=== PATIENT | male | born 1955 | race Caucasian/White ===

== ENCOUNTER 2016-11-29 12:14 | Inpatient (IN) | payer MEDICAID, OTHER ==
[~2016-11-29] VITALS: Ht 177.8 cm; Wt 100.2 kg
[~2016-11-29 12:14] MED LIST: ATOR80TA PO; CHOL100053 PO; CLOP75TA2 PO; DONE5TAB34 PO; DULO60CA63 PO; ESZO2TAB PO; METF500T4 PO; PANT40TA4 PO; TAMS-12 PO; ZOLP5TAB7 PO; [UNRECOGNIZED DRUG - CODE] PO
--- NOTE | 2016-11-29 12:20 | NUR ---
BIB FROM HOME DUE TO NEAR SYNCOPAL EPISODE. PATIENT IS AAO4, APPEARS IN NO APPARENT DISTRESS, RESPIRATION EVEN AND UNLABORED,. PATIENT DENIES N/V. HOWEVER PATIENT REPORTED HAVING BLOOD IN THE STOOL X1. PATIENT'S SKIN IS WARM TO TOUCH AND NON DIAPHORETIC. AFEBRILE. VSS. GOWNED PT AND PLACED ON TELE MONITOR.
[2016-11-29] MEDS ORDERED: PANTOPRAZOLE 40 MG VIAL ONE (12:27)
[2016-11-29] MEDS ORDERED: PANTOPRAZOLE 40 MG VIAL IV ONE (12:30)
--- NOTE | 2016-11-29 12:30 | NUR ---
MD MONTEZ AT BS
[2016-11-29 12:34] LABS: BASOPHILS # (AUTO) 0.1 /CMM (0.0-0.2); BASOPHILS % (AUTO) 0.6 % (0.0-2.0); EOSINOPHILS % (AUTO) 0.1 % (0.0-6.0); HEMATOCRIT 26 % (39-51); HEMOGLOBIN 8.6 g/dL (13.5-17.5); LYMPHOCYTES # (AUTO) 2.5 /CMM (0.8-4.8); LYMPHOCYTES % (AUTO) 14.3 % (20.0-44.0); MEAN CORPUSCULAR HEMOGLOBIN 25 PG (26.0-33.0); MEAN CORPUSCULAR HGB CONC 33 g/dl (31.0-36.0); MEAN CORPUSCULAR VOLUME 77 fL (80-96); MONOCYTES # (AUTO) 0.8 /CMM (0.1-1.30); MONOCYTES % (AUTO) 4.5 % (2.0-12.0); NEUTROPHILS # (AUTO) 14.1 /CMM (1.8-8.9); NEUTROPHILS % (AUTO) 80.5 % (43.0-81.0); PLATELET COUNT (AUTO) 394 /CMM (150-450); RDW COEFFICIENT OF VARIATION 16.9 (11.5-15.0); RED BLOOD CELL COUNT(AUTO) 3.45 MIL/uL (4.5-6.0); WHITE BLOOD COUNT (AUTO) 17.5 K/uL (4.3-11.0)
--- NOTE | 2016-11-29 12:42 | NUR ---
CALLED NURSING SUP. FOR TELE BED
--- NOTE | 2016-11-29 12:44 | NUR ---
IV ACCESSED TO [facility] 20,BLOOD SAMPLE SENT TO LAB
[2016-11-29 12:49] LABS: INR 1.05 (0.87-1.13); PROTHROMBIN TIME 10.9 SECS (9.5-12.7)
--- NOTE | 2016-11-29 12:52 | NUR ---
CALLED DR.ANITA DOAN AT [phone], TRANSFERRED CALL TO
[2016-11-29 12:54] LABS: CALCIUM, SERUM 8.2 mg/dL (8.5-10.1); POTASSIUM 4.5 mmol/L (3.5-5.1)
--- NOTE | 2016-11-29 12:59 | NUR ---
CALLED (GI BENCH LATHE OPERATOR), TRANSFERRED CALL TO
[2016-11-29 13:00] LABS: ALBUMIN 3.2 g/dL (3.4-5.0); BILIRUBIN,TOTAL 0.5 mg/dL (0.2-1.0); TOTAL PROTEIN, SERUM 6.2 g/dL (6.4-8.2)
[2016-11-29] MEDS ORDERED: IV NS 0.9% 1,000 ML BAG IV ONE (13:00)
[2016-11-29] MEDS ORDERED: METOCLOPRAMIDE HCL 10 MG/2 ML VIAL IV ONE (13:00)
[2016-11-29] MEDS ORDERED: NYST30PO9 TP (13:39)
[2016-11-29] MEDS ORDERED: CLOP75TA2 PO (13:39)
[2016-11-29] MEDS ORDERED: HYDR-548 PO (13:39)
[2016-11-29] MEDS ORDERED: BUSP5TAB3 PO (13:39)
[2016-11-29] MEDS ORDERED: CALC-866 PO (13:39)
[2016-11-29] MEDS ORDERED: [UNRECOGNIZED DRUG - CODE] TP (13:39)
[2016-11-29] MEDS ORDERED: HYDR59LO5 TP (13:39)
[2016-11-29] MEDS ORDERED: TRIA15OI9 TP (13:39)
[2016-11-29] MEDS ORDERED: LIDO30AD10 TP (13:39)
[2016-11-29] MEDS ORDERED: MUPI22OI7 TP (13:39)
[2016-11-29] MEDS ORDERED: TAMS-12 PO (13:39)
[2016-11-29] MEDS ORDERED: DOXE10OR2 PO (13:39)
[2016-11-29] MEDS ORDERED: DONE5TAB34 PO (13:39)
[2016-11-29] MEDS ORDERED: PANT40TA4 PO (13:39)
[2016-11-29] MEDS ORDERED: BUSP10TA3 PO (13:39)
[2016-11-29] MEDS ORDERED: DULO60CA45 PO (13:39)
[2016-11-29] MEDS ORDERED: KETO15CR TP (13:39)
[2016-11-29] MEDS ORDERED: TOBR5DRO46 EACHEYE (13:39)
[2016-11-29] MEDS ORDERED: OLOP2.5D5 DT (13:39)
[2016-11-29] MEDS ORDERED: CHOL100044 PO (13:39)
[2016-11-29] MEDS ORDERED: METF500T4 PO (13:40)
--- NOTE | 2016-11-29 13:57 | NUR ---
MATT PAGED, MANAGER GROUP
--- NOTE | 2016-11-29 14:11 | NUR ---
REPORT GIVEN TO OMAR NURSE FOR CONTINUITY OF CARE.
--- NOTE | 2016-11-29 14:19 | NUR ---
[facility] REPAGED
[2016-11-29] MEDS ORDERED: METOCLOPRAMIDE HCL 10 MG/2 ML VIAL ONE (14:49)
[2016-11-29] MEDS ORDERED: IV SET PRIMARY PUMP SET 1 EA INFUS.SET MC ONE ×2 (14:50→21:20)
[2016-11-29] MEDS ORDERED: IV NS 0.9% 1,000 ML ONE (14:50)
[2016-11-29] MEDS ORDERED: IV NS 0.9% 50 ML IV ONE (14:50)
[2016-11-29] MEDS ORDERED: Z GUARD REMEDY 2 OZ OINT TP PRN (15:00)
[2016-11-29] MEDS ORDERED: ONDANSETRON HCL/PF 4 MG/2 ML VIAL IVP PRN (15:00)
[2016-11-29] MEDS ORDERED: LIDOCAINE 5% (PATCH) 1 EA PATCH TP PRN (15:00)
[2016-11-29] MEDS ORDERED: NYSTATIN TOP POWDER 15 GM BOTTLE TP PRN (15:00)
[2016-11-29] MEDS ORDERED: KETOCONAZOLE 2% CREAM 15 GM TUBE TP PRN (15:00)
[2016-11-29] MEDS ORDERED: ACETAMINOPHEN 325 MG TABLET PO PRN (15:00)
[2016-11-29] MEDS ORDERED: MAGNESIUM HYDROXIDE 30 ML UDC PO PRN (15:00)
[2016-11-29] MEDS ORDERED: ZOLPIDEM TARTRATE 5 MG TABLET PO PRN (15:00)
--- NOTE | 2016-11-29 15:22 | NUR ---
PATIENT TRASNPORTED TO 3W. VSS
--- NOTE | 2016-11-29 15:23 | NUR ---
SETTER JUICE PACKAGING MACHINESCHUMMER NOTE PATIENT IS ALERT AND ORIENTED x4. NO PAIN AT THIS TIME. NO SOB OR DISTRESS NOTED. CALL LIGHT WITHIN REACH. SAFETY MEASURES IMPLEMENTED. SKIN ISSUES PRESENT AND DOCUMENTED. IV INTACT AND PATENT NO REDNESS OR SWELLING NOTED. ABLE TO COMMUNICATE NEEDS. CAME IN FROM ER FOR GI BLEED, POSSIBLE EGD DONE TODAY, CONSENTS OBTAINED AND SIGNED. ALL BELONGINGS ACCOUNTED FOR. WILL CONTINUE TO MONITOR
[2016-11-29 15:30] VITALS: BP 113/65
[2016-11-29] MEDS ORDERED: DEXTROSE 50%-WATER 50 ML DISP.SYRIN IV PRN (16:30)
[2016-11-29] MEDS ORDERED: INSULIN REGULAR, HUMAN 100 UNIT/ML 3 ML VIAL SQ PRN (16:30)
--- NOTE | 2016-11-29 16:44 | NUR ---
STONE GRADER NOTE PATIENT WENT DOWN TO OR. PATIENT IS STABLE, VITALS ARE STABLE. NO PAIN AT THIS TIME. NO SOB OR DISTRESS NOTED. WILL CONTINUE TO MONITOR
[2016-11-29] MEDS: busPIRone 5 MG TABLET PO SCH ×2 (17:00→21:34)
[2016-11-29] MEDS: MUPIROCIN OINT 2% 22 GM TUBE TP SCH (17:00)
[2016-11-29] MEDS: DONEPEZIL 5 MG TABLET PO SCH (17:25)
[2016-11-29] MEDS: BLOOD SUGAR DIAGNOSTIC 1 EACH STRIP IN SCH ×2 (17:26→21:34)
[2016-11-29] MEDS: TAMSULOSIN 0.4 MG CAP.SR.24H PO SCH (18:00)
[2016-11-29] MEDS: CHOLECALCIFEROL 1,000 UNIT TABLET (VIT D3) PO SCH (18:00)
[2016-11-29] MEDS ORDERED: DOXEPIN 10 MG/ML PO SCH (18:00)
[2016-11-29] MEDS: METFORMIN 500 MG TABLET PO SCH ×2 (18:00→21:32)
[2016-11-29] MEDS: DULOXETINE HCL 30 MG CAPSULE.DR PO SCH (18:00)
--- NOTE | 2016-11-29 18:15 | NUR ---
MUSEUM EXHIBIT DESIGNER NOTE PATIENT IS ALERT AND ORIENTED X4. BACK FROM OR, TOLERATED EGD WELL. PATIENT CAN START CLEAR LIQUIDS AND IF TOLERATED ADVANCE. CBC IN AM AND CONTINUE PLAVIX IN 24 HOURS. PATIENT'S VITALS ARE STABLE. WILL CONTINUE TO MONITOR
[2016-11-29] MEDS: HYDROCODONE/APAP 10/325MG 1 EA TABLET PO PRN (18:23)
--- NOTE | 2016-11-29 18:33 | NUR ---
VP DESIGN CLOSING NOTE PATIENT IS ALERT AND ORIENTED x4. PATIENT STATES 8/10 PAIN ON SHOULDER, PAIN MEDICATION GIVEN. NO SOB OR DISTRESS AT THIS TIME. CALL LIGHT WITHIN REACH. SAFETY MEASURES IMPLEMENTED. IV INTACT AND PATENT. ABLE TO COMMUNICATE NEEDS. POSSIBLE DISCHARGE IN THE MORNING IF PATIENT TOLERATES EGD POST OP WELL. CLEAR LIQUID DIET. WILL ENDORSE TO MANIPULATIVE THERAPY SPECIALIST NURSE
--- NOTE | 2016-11-29 19:30 | NUR ---
SHOT PACKER OPENING NOTES: PATIENT IN BED, AOX4, ON ROOM AIR, BREATHING EVEN AND UNLABORED. BREATH SOUNDS CLEAR TO AUSCULTATION. ON TELE MONITORING: SINUS RHYTHM AT RATE OF 80S. PIV OVER RAC G20 INTACT AND PATENT TO FLUSH. PROVIDED FOR COMFORT AND SAFETY. WILL CONT TO MONITOR.
[2016-11-29] MEDS ORDERED: EPINEPHRINE (1:10,000) SYRINGE 1 MG/10 ML DISP.SYRIN ONE (19:54)
[2016-11-29 20:00] VITALS: BP 121/63
--- NOTE | 2016-11-29 21:30 | NUR ---
RN NOTES: PATIENT'S BLOOD SUGAR CHECKED AT 195 MG/DL, PATIENT HAS NO INSULIN COVERAGE ORDERED. PATIENT IS REQUESTING FOR HIS METFORMIN TO BE GIVEN TO HIM. CHECKED EMAR SCHEDULE SUPPOSEDLY AT 1800 PM, HOWEVER, IT WAS NOT ADMINISTERED AT THE TIME PATIENT WAS ON NPO. GAVE NON-SCHEDULED ADMINISTRATION AT THIS TIME. SNACK GIVEN TO PATIENT. WILL CONT TO MONITOR.
[2016-11-29] MEDS: IV NS 0.9% 1,000 ML IV PRN (21:34)
[2016-11-30] VITALS (16 sets, daily range): BP systolic 97–122; BP diastolic 50–70
--- NOTE | 2016-11-30 05:30 | NUR ---
RN NOTES: MORNING CARE RENDERED, NOTED SMALL, SMEAR LIKE AMOUNT OF BM, NOTED TO BE BLOODY. WILL CONT TO MONITOR.
--- NOTE | 2016-11-30 06:33 | NUR ---
BUSINESS RESILIENCY MANAGER CLOSING NOTES: PATIENT IN BED, AOX4, ON ROOM AIR, BREATHING EVEN AND UNLABORED. ON TELE MONITORING WITH SINUS RHYTHM AT RATE OF 80S. PIV OVER RAC G 20 INTACT AND PATENT, INFUSING WELL WITH NS RUNNING AT 100 ML/HR. BLOOD SUGAR CHECKED AC AT 100MG/DL. PROVIDED FOR COMFORT AND SAFETY. MORNING CARE RENDERED. NO ACUTE CHANGE IN CONDITION NOTED THROUGH SHIFT. PATIENT ABLE TO TOLERATE CLEAR LIQUID SNACKS GIVEN THROUGH NIGHT. WILL ENDORSE TO AM RN FOR AZUCENA.
[2016-11-30 06:34] LABS: BASOPHILS # (AUTO) 0.1 /CMM (0.0-0.2); BASOPHILS % (AUTO) 0.5 % (0.0-2.0); EOSINOPHILS # (AUTO) 0.1 /CMM (0.0-0.7); EOSINOPHILS % (AUTO) 0.6 % (0.0-6.0); LYMPHOCYTES # (AUTO) 3.2 /CMM (0.8-4.8); LYMPHOCYTES % (AUTO) 27.8 % (20.0-44.0); MEAN CORPUSCULAR HEMOGLOBIN 25 PG (26.0-33.0); MEAN CORPUSCULAR HGB CONC 32 g/dl (31.0-36.0); MEAN CORPUSCULAR VOLUME 78 fL (80-96); MONOCYTES # (AUTO) 0.7 /CMM (0.1-1.30); MONOCYTES % (AUTO) 6.3 % (2.0-12.0); NEUTROPHILS # (AUTO) 7.4 /CMM (1.8-8.9); NEUTROPHILS % (AUTO) 64.8 % (43.0-81.0); PLATELET COUNT (AUTO) 270 /CMM (150-450); RDW COEFFICIENT OF VARIATION 18.1 (11.5-15.0); RED BLOOD CELL COUNT(AUTO) 2.37 MIL/uL (4.5-6.0); WHITE BLOOD COUNT (AUTO) 11.4 K/uL (4.3-11.0)
[2016-11-30 06:46] LABS: HEMATOCRIT 19 % (39-51)
--- NOTE | 2016-11-30 06:59 | NUR ---
RN NOTES: INFORMED PRISCILLA DYE TRANSPORTATION EQUIPMENT PAINTER OF CRITICAL HGB LEVEL OF 6.0. TELEPHONE ORDER OF TRANSFUSION FOR 2 UNITS PRBC GIVEN. ORDER NOTED AND CARRIED OUT.
[2016-11-30 07:03] LABS: CALCIUM, SERUM 7.7 mg/dL (8.5-10.1); CREATININE 0.8 mg/dL (0.6-1.3); MAGNESIUM 1.8 mg/dL (1.8-2.4); POTASSIUM 3.5 mmol/L (3.5-5.1)
[2016-11-30] MEDS: BLOOD SUGAR DIAGNOSTIC 1 EACH STRIP IN SCH ×5 (07:04→22:00)
[2016-11-30] MEDS ORDERED: IV NS 0.9% 250 ML IV ONE (07:26)
[2016-11-30] MEDS ORDERED: BLOOD IV SET 1 EA INFUS.SET MC ONE (07:26)
[2016-11-30 07:31] LABS: LYMPHOCYTES % (MANUAL) 29 % (16-48); MONOCYTES % (MANUAL) 7 % (0-11.0); NEUTROPHILS % (MANUAL) 64 (42-76)
--- NOTE | 2016-11-30 07:45 | NUR ---
MS/RN OPENING NOTE PT. IS LYING IN BED WATCHING TV, A&OX4. NO SOB, BREATHING ON ROOM AIR UNLABORED, AND EVENLY. NO S/S OF DISTRESS. IV FLUIDS RUNNING ON RIGHT ANTECUBITAL IV SITE AT 100 ML/HR. PER WELDING MACHINE TENDER NURSE WILL NEED TO BEGIN BLOOD TRANSFUSION TODAY DUE TO LOW HEMOGLOBIN LEVEL. PT. HAS CANE NEAR BEDSIDE FOR AMBULATION. PT. HAS A URINAL NEAR BEDSIDE WITH 100 ML OUTPUT OF CLEAR AND YELLOW URINE. BED IS IN LOW POSITION, 2 SIDE RAILS UP, CALL LIGHT WITHIN REACH, AND ALL NEEDS ATTENDED TO. WILL CONTINUE TO ASSESS AND MONITOR PT.
[2016-11-30] MEDS: TOBRAMYCIN/DEXAMETH OPHTH DORPS 2.5 ML BOTTLE EACHEYE SCH (08:38)
[2016-11-30] MEDS: PANTOPRAZOLE 40 MG TABLET.DR PO SCH (08:39)
[2016-11-30] MEDS: busPIRone 5 MG TABLET PO SCH ×3 (08:39→21:08)
[2016-11-30] MEDS: METOCLOPRAMIDE HCL 10 MG/2 ML VIAL IV SCH (08:40)
[2016-11-30] MEDS: MUPIROCIN OINT 2% 22 GM TUBE TP SCH ×2 (09:00→19:00)
[2016-11-30] MEDS ORDERED: CALCIUM CARB 250MG /VITAMIN D 1 UDTAB PO SCH (09:00)
--- NOTE | 2016-11-30 12:45 | NUR ---
MS/LEGAL ARCHIVIST DC PER DR. ANNE'S ORDER, PT. IS BEING DISCHARGED FROM TELEMETRY. REMOVED EXTERNAL GUINEA PIG BREEDER AND LEADS.
[2016-11-30 14:12] LABS: BASOPHILS # (AUTO) 0.1 /CMM (0.0-0.2); BASOPHILS % (AUTO) 0.7 % (0.0-2.0); EOSINOPHILS # (AUTO) 0.1 /CMM (0.0-0.7); EOSINOPHILS % (AUTO) 0.9 % (0.0-6.0); LYMPHOCYTES # (AUTO) 3.1 /CMM (0.8-4.8); LYMPHOCYTES % (AUTO) 33.2 % (20.0-44.0); MEAN CORPUSCULAR HEMOGLOBIN 26 PG (26.0-33.0); MEAN CORPUSCULAR HGB CONC 32 g/dl (31.0-36.0); MEAN CORPUSCULAR VOLUME 79 fL (80-96); MONOCYTES # (AUTO) 0.5 /CMM (0.1-1.30); NEUTROPHILS # (AUTO) 5.6 /CMM (1.8-8.9); NEUTROPHILS % (AUTO) 60.2 % (43.0-81.0); PLATELET COUNT (AUTO) 242 /CMM (150-450); RED BLOOD CELL COUNT(AUTO) 2.48 MIL/uL (4.5-6.0); WHITE BLOOD COUNT (AUTO) 9.3 K/uL (4.3-11.0)
[2016-11-30 14:18] LABS: HEMATOCRIT 20 % (39-51); HEMOGLOBIN 6.3 g/dL (13.5-17.5)
[2016-11-30] MEDS ORDERED: DOXEPIN HCL 10 MG CAPSULE PO PRN (16:30)
--- NOTE | 2016-11-30 16:50 | NUR ---
MS/RN MEDICATIONS DISCUSSED WITH DR. MARTINEZ ABOUT PT. CONTINUING HIS HOME MEDICATIONS. PLACED ORDER FOR TWO HOME MEDICATIONS TO BE TAKEN TONIGHT.
--- NOTE | 2016-11-30 17:00 | NUR ---
MS/YOUTH DEVELOPMENT SPECIALIST PT.'S BROUGHT PT.'S MEDICATIONS FROM HOME. BROUGHT HOME MEDICATIONS TO PHARMACY.
--- NOTE | 2016-11-30 17:00 | NUR ---
MS/RN MEDICATIONS PT. AGREED WITH DR. THAKUR TO RESTART TAKING PLAVIX 12/01/16. PT. CAN CONTINUE TAKING FLOMAX PER DOCTOR'S VERBAL ORDER.
[2016-11-30] MEDS: METFORMIN 500 MG TABLET PO SCH (18:00)
[2016-11-30] MEDS: CHOLECALCIFEROL 1,000 UNIT TABLET (VIT D3) PO SCH (18:15)
[2016-11-30] MEDS: DONEPEZIL 5 MG TABLET PO SCH (18:15)
[2016-11-30] MEDS: DULOXETINE HCL 30 MG CAPSULE.DR PO SCH (18:16)
[2016-11-30] MEDS: TAMSULOSIN 0.4 MG CAP.SR.24H PO SCH (18:16)
--- NOTE | 2016-11-30 19:30 | NUR ---
MS/RN CLOSING NOTE PT. IS SITTING IN A CHAIR A&OX4. NO SOB, BREATHING ON ROOM AIR UNLABORED. NO S/S OF DISTRESS. PT. HAD 2 UNITS OF BLOOD TRANSFUSED. PT. HAS A URINAL NEAR BEDSIDE. PT. HAS A CANE NEAR BEDSIDE HE USES FOR AMBULATION. BED IS IN LOW POSITION, 2 SIDE RAILS UP, CALL LIGHT WITHIN REACH, AND ALL NEEDS ATTENDED TO. WILL ENDORSE REPORT TO WALL WORKER NURSE.
--- NOTE | 2016-11-30 19:31 | NUR ---
MS RN OPENING NOTES: PATIENT SITTING ON CHAIR, BREATHING EVEN AND UNLABORED. APPEARS CALM AND IN NO DISTRESS. DENIES PAIN AT THIS TIME. PIV OVER RAC G20 INTACT AND INFUSING WELL WITH NS RUNNING AT 100 ML/HR. PROVIDED FOR COMFORT AND SAFETY. WILL CONT TO MONITOR.
--- NOTE | 2016-11-30 20:20 | NUR ---
RN NOTES: INFORMED PRISCILLA DYE DOOR AND ARRIVAL ATTENDANT THAT MOST RECENT HGB WAS 6.3, BUT IT WAS DRAWN EARLIER AFTER ONLY 1 UNIT PRBC WAS BEING TRANSFUSED. 2ND UNIT PRBC ENDED AT 1730 PM PER REPORT. PER PRISCILLA, DO REPEAT CBC NOW. ORDER NOTED AND CARRIED OUT.
[2016-11-30] MEDS: HYDROCODONE/APAP 10/325MG 1 EA TABLET PO PRN (21:07)
[2016-11-30] MEDS: ATORVASTATIN 40 MG TABLET PO SCH (21:07)
[2016-11-30 21:08] LABS: BASOPHILS # (AUTO) 0.1 /CMM (0.0-0.2); BASOPHILS % (AUTO) 0.8 % (0.0-2.0); EOSINOPHILS # (AUTO) 0.2 /CMM (0.0-0.7); EOSINOPHILS % (AUTO) 1.4 % (0.0-6.0); HEMATOCRIT 23 % (39-51); HEMOGLOBIN 7.4 g/dL (13.5-17.5); LYMPHOCYTES # (AUTO) 3.8 /CMM (0.8-4.8); LYMPHOCYTES % (AUTO) 34.9 % (20.0-44.0); MEAN CORPUSCULAR HEMOGLOBIN 26 PG (26.0-33.0); MEAN CORPUSCULAR HGB CONC 33 g/dl (31.0-36.0); MEAN CORPUSCULAR VOLUME 79 fL (80-96); MONOCYTES # (AUTO) 0.8 /CMM (0.1-1.30); MONOCYTES % (AUTO) 7.2 % (2.0-12.0); NEUTROPHILS # (AUTO) 6.1 /CMM (1.8-8.9); NEUTROPHILS % (AUTO) 55.7 % (43.0-81.0); PLATELET COUNT (AUTO) 250 /CMM (150-450); RDW COEFFICIENT OF VARIATION 17.4 (11.5-15.0); RED BLOOD CELL COUNT(AUTO) 2.84 MIL/uL (4.5-6.0)
--- NOTE | 2016-11-30 21:20 | NUR ---
RN NOTES: PT C/O PAIN OVER SHOULDERS, SCALED AT 7-8/10. ADMINISTERED NORCO. BLOOD SUGAR ALSO CHECKED AT 87 MG/DL. GAVE SNACK AT THIS TIME. WILL CONT TO MONITOR.
--- NOTE | 2016-11-30 21:45 | NUR ---
RN NOTES: INFORMED PRISCILLA RECREATION SUPERINTENDENT OF LATEST HB.4. PER RECREATION SUPERINTENDENT, CONT WITH AM LABS TOMORROW, NNO OF NOW. PATIENT IS ASYMPTOMATIC, VS STABLE. WILL CONT TO MONITOR.
[2016-12-01] VITALS (13 sets, daily range): BP systolic 99–123; BP diastolic 54–71
--- NOTE | 2016-12-01 00:47 | NUR ---
RN NOTES: PATIENT REQUESTED FOR DOXEPIN PO TO BE GIVEN AT THIS TIME. WILL CONT TO MONITOR.
[2016-12-01] MEDS: IV NS 0.9% 1,000 ML IV PRN ×2 (02:34→18:05)
--- NOTE | 2016-12-01 04:44 | NUR ---
RN NOTES: PIV OVER RAC KEEPS BEEPING, SOME RESISTANCE NOTED WITH FLUSHING. D'ROXY LINE AND REINSERTED NEW IV LINE OVER RFA G 20. IVF OF NS INFUSING WELL AT RATE OF 100 ML/HR.
--- NOTE | 2016-12-01 04:58 | NUR ---
RN NOTES: PATIENT HAS KETOCONAZOLE OINTMENT AND BACTROBAN OINTMENT PART OF HIS HOME MEDS, HOWEVER, PATIENT DOES NOT RECALL HOW HE APPLIES IT, AND SAYS HIS BROUGHT THE LIST WITH INSTRUCTIONS YESTERDAY, FOR SUBMISSION TO PHARMACY. WILL FF UP WITH PHARMACY IN AM.
[2016-12-01 05:58] LABS: BASOPHILS # (AUTO) 0.1 /CMM (0.0-0.2); BASOPHILS % (AUTO) 1.1 % (0.0-2.0); EOSINOPHILS # (AUTO) 0.2 /CMM (0.0-0.7); EOSINOPHILS % (AUTO) 2.8 % (0.0-6.0); HEMATOCRIT 22 % (39-51); HEMOGLOBIN 7.3 g/dL (13.5-17.5); LYMPHOCYTES # (AUTO) 3.7 /CMM (0.8-4.8); LYMPHOCYTES % (AUTO) 43.6 % (20.0-44.0); MEAN CORPUSCULAR HEMOGLOBIN 26 PG (26.0-33.0); MEAN CORPUSCULAR HGB CONC 33 g/dl (31.0-36.0); MEAN CORPUSCULAR VOLUME 79 fL (80-96); MONOCYTES # (AUTO) 0.5 /CMM (0.1-1.30); MONOCYTES % (AUTO) 6.3 % (2.0-12.0); NEUTROPHILS # (AUTO) 3.9 /CMM (1.8-8.9); NEUTROPHILS % (AUTO) 46.2 % (43.0-81.0); PLATELET COUNT (AUTO) 220 /CMM (150-450); RED BLOOD CELL COUNT(AUTO) 2.76 MIL/uL (4.5-6.0); WHITE BLOOD COUNT (AUTO) 8.5 K/uL (4.3-11.0)
--- NOTE | 2016-12-01 06:31 | NUR ---
MS RN CLOSING NOTES: PATIENT IN BED, AOX4, ON ROOM AIR, BREATHING EVEN AND UNLABORED. PIV OVER RFA G20 INTACT AND INFUSING WELL WITH NS RUNNING AT 100 ML/HR. BLOOD SUGAR CHECKED AT 93 MG/DL. PROVIDED FOR COMFORT AND SAFETY. NO ACTIVE SIGNS OF BLEEDING NOTED. NO ACUTE CHANGE IN CONDITION THROUGH SHIFT. WILL ENDORSE TO AM RN FOR AZUCENA.
[2016-12-01] MEDS: BLOOD SUGAR DIAGNOSTIC 1 EACH STRIP IN SCH ×4 (06:47→22:13)
--- NOTE | 2016-12-01 07:30 | NUR ---
RN NOTES: CALLED PHARMACY TO EXPLAIN PATIENT'S DOXEPIN PO HOME MEDICATION IS TO BE GIVEN HS PRN, NOT QPM , PER PATIENT. SCHEDULE REVISED ON ORDER.
--- NOTE | 2016-12-01 07:30 | NUR ---
RN OPENING NOTE PT. IS LYING IN BED AWAKE, A&OX4. NO SOB, NO S/S OF DISTRESS. PT. HAS IV FLUIDS RUNNING AT 100 ML/HR. EMPTY URINAL IS NEAR PT.'S BED SIDE. BED IS IN LOW POSITION, 2 SIDE RAILS, UP CALL LIGHT WITHIN REACH, AND ALL NEEDS ATTENDED TO. WILL CONTINUE TO ASSESS AND MONITOR PT.
[2016-12-01] MEDS: TOBRAMYCIN/DEXAMETH OPHTH DORPS 2.5 ML BOTTLE EACHEYE SCH (08:06)
[2016-12-01] MEDS: HYDROCODONE/APAP 10/325MG 1 EA TABLET PO PRN ×3 (08:06→18:47)
[2016-12-01] MEDS: MUPIROCIN OINT 2% 22 GM TUBE TP SCH (08:07)
[2016-12-01] MEDS: PANTOPRAZOLE 40 MG TABLET.DR PO SCH (08:43)
[2016-12-01] MEDS: METOCLOPRAMIDE HCL 10 MG/2 ML VIAL IV SCH (08:43)
[2016-12-01] MEDS: busPIRone 5 MG TABLET PO SCH ×3 (08:55→22:13)
[2016-12-01] MEDS ORDERED: IV NS 0.9% 250 ML IV ONE ×2 (09:44→21:04)
[2016-12-01] MEDS ORDERED: BLOOD IV SET 1 EA INFUS.SET MC ONE ×2 (09:46→21:05)
--- NOTE | 2016-12-01 09:50 | NUR ---
PT. SEEN BY DR. JUAN MARTINEZ DISCUSSED WITH PT. HIS H&H RESULTS WERE LOW AFTER PREVIOUS BLOOD TRANSFUSION, AND ADVISED PT. TO DO A BLOOD TRANSFUSION TODAY, PT. VERBALIZED UNDERSTANDING AND AGREED. DISCUSSED PLAN OF CARE WITH DOCTOR TO DO ANOTHER BLOOD TRANSFUSION WITH 2 UNITS OF PACKED RED BLOOD CELLS WILL BE ORDERED, AND CONTINUE TO HOLD PLAVIX.
--- NOTE | 2016-12-01 10:49 | NUR ---
BLOOD TRANSFUSION ORDER ORDERED 2 UNITS OF PACKED RED BLOOD CELLS, AND BLOOD TRANSFUSION CONSENT FORM WAS SIGNED BY PATIENT.
[2016-12-01 17:04] LABS: BASOPHILS # (AUTO) 0.1 /CMM (0.0-0.2); BASOPHILS % (AUTO) 0.6 % (0.0-2.0); EOSINOPHILS # (AUTO) 0.2 /CMM (0.0-0.7); EOSINOPHILS % (AUTO) 2.5 % (0.0-6.0); HEMATOCRIT 23 % (39-51); HEMOGLOBIN 7.6 g/dL (13.5-17.5); LYMPHOCYTES # (AUTO) 3.1 /CMM (0.8-4.8); LYMPHOCYTES % (AUTO) 35.4 % (20.0-44.0); MEAN CORPUSCULAR HEMOGLOBIN 26 PG (26.0-33.0); MEAN CORPUSCULAR HGB CONC 33 g/dl (31.0-36.0); MEAN CORPUSCULAR VOLUME 80 fL (80-96); MONOCYTES # (AUTO) 0.6 /CMM (0.1-1.30); MONOCYTES % (AUTO) 7.1 % (2.0-12.0); NEUTROPHILS # (AUTO) 4.8 /CMM (1.8-8.9); NEUTROPHILS % (AUTO) 54.4 % (43.0-81.0); PLATELET COUNT (AUTO) 216 /CMM (150-450); RDW COEFFICIENT OF VARIATION 16.7 (11.5-15.0); WHITE BLOOD COUNT (AUTO) 8.8 K/uL (4.3-11.0)
[2016-12-01] MEDS: TAMSULOSIN 0.4 MG CAP.SR.24H PO SCH (18:00)
[2016-12-01] MEDS ORDERED: CALCIUM CARB 250MG /VITAMIN D 1 UDTAB PO SCH (18:00)
[2016-12-01] MEDS: METFORMIN 500 MG TABLET PO SCH (18:04)
[2016-12-01] MEDS: CHOLECALCIFEROL 1,000 UNIT TABLET (VIT D3) PO SCH (18:04)
[2016-12-01] MEDS: DULOXETINE HCL 30 MG CAPSULE.DR PO SCH (18:04)
[2016-12-01] MEDS: DONEPEZIL 5 MG TABLET PO SCH (18:04)
--- NOTE | 2016-12-01 19:00 | NUR ---
RN CLOSING NOTE PT. IS LYING IN BED WATCHING TV A&OX4. NO SOB, BREATHING EVENLY AND UNLABORED ON ROOM AIR. NO S/S OF DISTRESS. PT. IS ON IV FLUIDS RUNNING AT 100 ML/HR. PAIN MEDICATIONS WERE GIVEN FOR SHOULDER PAIN. ONE UNIT OF PACKED RED BLOOD CELLS WAS ADMINISTERED FOLLOWING CBC COMPLETED AND HOUR AFTER BLOOD TRANSFUSION PER MD ORDERS. HEMOGLOBIN IS NOW 7.6. PT. BED IS IN LOW POSITION, CALL LIGHT WITHIN REACH, 2 SIDE RAILD UP, AND ALL NEEDS ATTENDED TO. WILL ENDORSE REPORT TO RIVER TRANSPORTATION WORKER NURSE.
--- NOTE | 2016-12-01 19:30 | NUR ---
MS RN OPENING NOTES: PATIENT IN BED, AOX4, ON ROOM AIR, BREATHING EVEN AND UNLABORED. IN NO APPARENT DISTRESS. DENIES PAIN AT THIS TIME. PIV OVER RFA G 20 INTACT AND INFUSING WELL WITH NS RUNNING AT 100 ML/HR. PROVIDED FOR COMFORT AND SAFETY. WILL CONT TO MONITOR.
--- NOTE | 2016-12-01 19:55 | NUR ---
RN NOTES: PATIENT C/O PAIN OVER BHAVESH SHOULDERS AND REQUESTED FOR THE LIDODERM PATCH. LIDODERM PATCH PLACED ON BOTH SHOULDERS, TO BE TAKEN OFF AFTER 12 HRS.
--- NOTE | 2016-12-01 21:43 | NUR ---
RN NOTES: 4TH UNIT PRBC STARTED TO TRANSFUSE AT THIS TIME. VS TAKEN AND ARE WNL. EXPLAINED TO PATIENT SIGNS AND SYMPTOMS OF BT REACTION. CONSENT FOR BT SIGNED, ON FILE. WILL CONT TO MONITOR.
[2016-12-01] MEDS ORDERED: DOXEPIN PO PRN (22:00)
[2016-12-01] MEDS: ATORVASTATIN 40 MG TABLET PO SCH (22:13)
[2016-12-02 00:54] VITALS: BP 108/61
--- NOTE | 2016-12-02 00:55 | NUR ---
RN NOTES: 4TH UNIT PRBC ENDED AT THIS TIME. PATIENT ABLE TO TOLERATE TRANSFUSION WELL, VS REMAINED STABLE, NOTED NO SIGNS OF TRANSFUSION REACTIONS. ORDERED FOR REPEAT CBC AFTER 1 HR AT 0200 AM. WILL CONT TO MONITOR .
[2016-12-02 02:35] LABS: BASOPHILS # (AUTO) 0.1 /CMM (0.0-0.2); BASOPHILS % (AUTO) 0.9 % (0.0-2.0); EOSINOPHILS # (AUTO) 0.4 /CMM (0.0-0.7); EOSINOPHILS % (AUTO) 3.8 % (0.0-6.0); HEMATOCRIT 27 % (39-51); HEMOGLOBIN 8.8 g/dL (13.5-17.5); MEAN CORPUSCULAR HEMOGLOBIN 26 PG (26.0-33.0); MEAN CORPUSCULAR HGB CONC 33 g/dl (31.0-36.0); MEAN CORPUSCULAR VOLUME 80 fL (80-96); MONOCYTES # (AUTO) 0.7 /CMM (0.1-1.30); MONOCYTES % (AUTO) 6.9 % (2.0-12.0); NEUTROPHILS # (AUTO) 5.6 /CMM (1.8-8.9); NEUTROPHILS % (AUTO) 57.4 % (43.0-81.0); PLATELET COUNT (AUTO) 224 /CMM (150-450); RDW COEFFICIENT OF VARIATION 17.1 (11.5-15.0); RED BLOOD CELL COUNT(AUTO) 3.35 MIL/uL (4.5-6.0); WHITE BLOOD COUNT (AUTO) 9.7 K/uL (4.3-11.0)
[2016-12-02] MEDS: IV NS 0.9% 1,000 ML IV PRN (06:30)
[2016-12-02] MEDS: BLOOD SUGAR DIAGNOSTIC 1 EACH STRIP IN SCH ×2 (06:30→11:56)
[2016-12-02 06:55] LABS: BASOPHILS # (AUTO) 0.1 /CMM (0.0-0.2); BASOPHILS % (AUTO) 0.7 % (0.0-2.0); EOSINOPHILS # (AUTO) 0.3 /CMM (0.0-0.7); HEMATOCRIT 26 % (39-51); HEMOGLOBIN 8.6 g/dL (13.5-17.5); LYMPHOCYTES # (AUTO) 2.8 /CMM (0.8-4.8); LYMPHOCYTES % (AUTO) 31.3 % (20.0-44.0); MEAN CORPUSCULAR HEMOGLOBIN 27 PG (26.0-33.0); MEAN CORPUSCULAR HGB CONC 33 g/dl (31.0-36.0); MEAN CORPUSCULAR VOLUME 80 fL (80-96); MONOCYTES # (AUTO) 0.6 /CMM (0.1-1.30); MONOCYTES % (AUTO) 6.6 % (2.0-12.0); NEUTROPHILS # (AUTO) 5.2 /CMM (1.8-8.9); NEUTROPHILS % (AUTO) 58.4 % (43.0-81.0); PLATELET COUNT (AUTO) 216 /CMM (150-450); RDW COEFFICIENT OF VARIATION 17.6 (11.5-15.0); RED BLOOD CELL COUNT(AUTO) 3.26 MIL/uL (4.5-6.0); WHITE BLOOD COUNT (AUTO) 8.9 K/uL (4.3-11.0)
--- NOTE | 2016-12-02 06:58 | NUR ---
MS RN CLOSING NOTES: PATIENT IN BED, AOX4, ON ROOM AIR, BREATHING EVEN AND UNLABORED. APPEARS CALM AND IN NO DISTRESS, DENIES PAIN AT THIS TIME. PIV OVER RFA G 20 INTACT AND INFUSING WELL WITH NS RUNNING AT 100 ML/HR. BLOOD GLUCOSE CHECKED BEFORE BREAKFAST AT 88 MG/DL. DUE MEDS GIVEN. PROVIDED FOR COMFORT AND SAFETY. LIDODERM PATCHES ON SHOULDERS TO BE REMOVED AT 0800 AM. NO ACUTE CHANGE IN CONDITION NOTED THROUGH SHIFT. WILL ENDORSE TO AM RN FOR AZUCENA.
[2016-12-02 07:09] LABS: CALCIUM, SERUM 7.8 mg/dL (8.5-10.1); CREATININE 0.7 mg/dL (0.6-1.3); POTASSIUM 3.9 mmol/L (3.5-5.1)
[2016-12-02] MEDS: HYDROCODONE/APAP 10/325MG 1 EA TABLET PO PRN (07:36)
--- NOTE | 2016-12-02 07:36 | NUR ---
m/s maintenance superintendent: notes c/o 01/13 both shoulders and back pain, medicated with norco 10/325mg po as ordered. instructed to call for assistance. breakfast served.
[2016-12-02 08:00] VITALS: BP 152/77
[2016-12-02] MEDS: busPIRone 5 MG TABLET PO SCH (08:22)
[2016-12-02] MEDS: PANTOPRAZOLE 40 MG TABLET.DR PO SCH (08:22)
[2016-12-02] MEDS: TOBRAMYCIN/DEXAMETH OPHTH DORPS 2.5 ML BOTTLE EACHEYE SCH (08:23)
--- NOTE | 2016-12-02 08:36 | NUR ---
m/s vessel slagman: notes sleeping at this time. no s/s of discomfort. will continue to monitor.
[2016-12-02] MEDS: METOCLOPRAMIDE HCL 10 MG/2 ML VIAL IV SCH (08:45)
[2016-12-02] MEDS: MUPIROCIN OINT 2% 22 GM TUBE TP SCH (08:53)
--- NOTE | 2016-12-02 09:00 | NUR ---
m/s accreditation manager: md visit seen and examined by dr. ramirez with order to discharge home with instructions: <1)f/u with PCP in 3 days, 2)f/u with GI as scheduled. md instructed pt re: d'c planning and pt verbalized understanding. to pick him up as stated.
--- NOTE | 2016-12-02 09:30 | NUR ---
m/s machine operator hay stacker: notes home meds returned to pt. pt not ready for discharge instructions, stated, "my will be here this afternoon, i want to eat lunch here." instructed to call for assistance.
--- NOTE | 2016-12-02 11:45 | NUR ---
m/s manufacturing team leader: d'c instructions discharged instructions given to pt and verbalized understanding, stated, "i will follow up with my primary in 3 days and will get lab work for anemia and i will follow up with my cafe attendant soon." h/l removed with tip intact with no swelling, no redness, and no bleeding noted.
--- NOTE | 2016-12-02 12:15 | NUR ---
m/s hand reamer: discharged discharged home accompanied by via private car in stable condition.
== END 2016-12-02 12:15 | disposition home or self-care (01) | DRG 377 ==
LOC: ER 12:16 → TELE1 14:25 → TELE 14:35 → MED 11-30 09:55
PROVIDERS: ADMIT Family Medicine; ATTEND Family Medicine
PROC: 0W3P8ZZ Control Bleeding in Gastrointestinal Tract, Via Natural or Artificial Opening Endoscopic (ICD-10-PCS; principal; 2016-11-29 17:08)
PROC: 30233N1 Transfusion of Nonautologous Red Blood Cells into Peripheral Vein, Percutaneous Approach (ICD-10-PCS; 2016-11-30)
DX: K28.4 Chronic or unspecified gastrojejunal ulcer with hemorrhage (principal); N17.0 Acute kidney failure with tubular necrosis; E46 Unspecified protein-calorie malnutrition; D62 Acute posthemorrhagic anemia; D72.829 Elevated white blood cell count, unspecified; E11.9 Type 2 diabetes mellitus without complications; E66.9 Obesity, unspecified; E86.9 Volume depletion, unspecified; E88.09 Other disorders of plasma-protein metabolism, not elsewhere classified; F03.90 Unspecified dementia, unspecified severity, without behavioral disturbance, psychotic disturbance, mood disturbance, and anxiety; F32.9 Major depressive disorder, single episode, unspecified; F41.9 Anxiety disorder, unspecified; N40.0 Benign prostatic hyperplasia without lower urinary tract symptoms; Z79.84 Long term (current) use of oral hypoglycemic drugs; Z86.73 Personal history of transient ischemic attack (TIA), and cerebral infarction without residual deficits; Z87.891 Personal history of nicotine dependence; Z87.11 Personal history of peptic ulcer disease; Z98.84 Bariatric surgery status; G89.29 Other chronic pain; Z68.31 Body mass index [BMI] 31.0-31.9, adult; T39.395A Adverse effect of other nonsteroidal anti-inflammatory drugs [NSAID], initial encounter; Y92.009 Unspecified place in unspecified non-institutional (private) residence as the place of occurrence of the external cause
CPT/HCPCS: 36415; 71010-TC; 80048-TC; 80053-TC; 80061-TC; 82962-TC; 83690-TC; 83735-TC; 84100-TC; 85025-TC; 85730-TC; 86850-TC; 86921-TC; 87081-TC; 92611-TC; 97001-TC; A4216; A4606; C9113; J0171; J1815; J2765; J7030; J7050; P9016-BL; Z7610